=== PATIENT | female | born 1990 | race Caucasian/White ===

== ENCOUNTER 2017-04-12 12:33 | Outpatient (CLI) | END 2017-04-12 15:05 | disposition home or self-care (01) ==

== ENCOUNTER 2017-04-14 08:36 | Inpatient (IN) | payer MEDICAID ==
[~2017-04-14] VITALS: Ht 160 cm; Wt 63.0 kg
--- NOTE | 2017-04-14 08:54 | TRIAGE ---
OB Triage Datetime Report Generated by CPN: 04/14/2017 08:54 Datetime: 04/14/2017 08:51 Time of Arrival: 04/14/2017 08:40 EGA: 40.3 Arrived By: Ambulatory Arrived From: Home Chief Complaint: UCS SINCE 0200 Movement: Present Contractions: Regular Time Contractions Began: 04/14/2017 02:00 Contractions: Q 15 AT HOME Rupture of Membranes: Denies Vaginal Bleeding: None Vaginal Discharge: Denies Recent Sexual Intercouse: Denies Abdominal Trauma: Not Applicable Patient Complaints: Contractions Time Provider Notified: 04/14/2017 08:51 Provider Notified: DR JOSE Initial Plan: EFM,CALL DR NICOLASSVE Datetime: 04/14/2017 08:50 Maternal Assessment Level of Consciousness: Fully Conscious DTR's/Clonus: DTRs 2+; No Clonus Headache: Denies Blurred Vision: No Respiratory Effort: Unlabored; Regular Rhythm; Equal Expansion Breath Sounds, Left: Clear and Equal Breath Sounds, Right: Clear and Equal Nausea/Vomiting: Denies RUQ Epigastric Pain: Denies Facial Edema: None Temperature Route: Axillary Fall Risk Assessment History of Falling: (0) No Secondary Diagnosis: (0) No Ambulatory Aid: (0) Bedrest/Nurse Assist IV Therapy: (0) No Gait: (0) Normal/Bedrest/Immobile Mental Status: (0) Oriented to Own Ability Fall Score: 0 Fall Risk Score Definition: No Risk: No action required Datetime: 04/12/2017 13:03 EGA: 40.1 Datetime: 04/12/2017 12:59 Fall Score: 0 Fall Risk Score Definition: No Risk: No action required
[2017-04-14 08:55] VITALS: Ht 160 cm; Wt 63.0 kg
[2017-04-14 08:57] VITALS: BP 108/68; PULSE 82; RESP 18
[2017-04-14] MEDS ORDERED: LACTATED RINGER'S 1,000 ML IV SCH (08:59)
[2017-04-14] MEDS ORDERED: PREN1TAB79 PO (08:59)
[2017-04-14] MEDS ORDERED: LIDOCAINE 1% (MPF) 30 ML INJ INJ PRN (09:00)
[2017-04-14] MEDS ORDERED: BUTORPHANOL 2 MG INJ IV PRN (09:00)
[2017-04-14] MEDS ORDERED: OXYTOCIN 30 UNITS/LR 500 ML IV SCH ×2 (09:00)
[2017-04-14] MEDS ORDERED: MISOPROSTOL 200 MCG TAB PR PRN (09:00)
[2017-04-14] MEDS ORDERED: IBUPROFEN 600 MG TAB PO PRN (09:00)
[2017-04-14] MEDS ORDERED: METHYLERGONOVINE 0.2 MG INJ IM PRN (09:00)
[2017-04-14] MEDS ORDERED: CARBOPROST 250 MCG INJ IM PRN (09:00)
[2017-04-14] MEDS ORDERED: OXYTOCIN 30 UNITS/LR 500 ML IV PRN (09:00)
[2017-04-14] MEDS ORDERED: LACTATED RINGER'S 1,000 ML IV PRN (09:30)
[2017-04-14 09:34] LABS: BASOPHILS % 0.4 % (0.0-2.0); EOSINOPHILS # 0.1 10^3/ul (0.0-0.5); EOSINOPHILS % 0.9 % (0.0-7.0); HEMATOCRIT 29.7 % (37.0-47.0); HEMOGLOBIN 9.7 g/dl (12.0-16.0); LYMPHOCYTES # 1.2 10^3/ul (0.8-2.9); LYMPHOCYTES % 17.3 % (15.0-51.0); MEAN CORPUSCULAR HEMOGLOBIN 28.4 pg (29.0-33.0); MEAN CORPUSCULAR HGB CONC 32.7 g/dl (32.0-37.0); MEAN CORPUSCULAR VOLUME 86.8 fl (82.0-101.0); MEAN PLATELET VOLUME 12.3 fl (7.4-10.4); MONOCYTE # 0.3 10^3/ul (0.3-0.9); MONOCYTES % 4.8 % (0.0-11.0); NEUTROPHIL # 5.3 10^3/ul (1.6-7.5); PLATELET COUNT 150 10^3/UL (140-415); RED BLOOD COUNT 3.42 10^6/ul (4.20-5.40); RED CELL DISTRIBUTION WIDTH 14.6 % (11.5-14.5); WHITE BLOOD COUNT 6.9 10^3/ul (4.8-10.8)
[2017-04-14 09:55] LABS: INR 1.01; PROTIME 13.3 Sec (12.2-14.2)
[2017-04-14 09:56] LABS: PARTIAL THROMBOPLASTIN TIME 28.5 Sec (25.0-35.0)
[2017-04-14] MEDS: OXYTOCIN 30 UNITS/LR 500 ML IV SCH ×4 (13:16→21:51)
--- NOTE | 2017-04-14 13:24 | LDN ---
Date/Time of Note Date/Time of Note DATE: 04/14/17 TIME: 13:20 Delivery Summary Normal spontaneous vaginal delivery of a baby girl from OA position shoulders delivered without any difficulty rest of the baby's body followed cord clamped after stopped pulsation placenta spontaneous expulsion inspected complete blood loss 300 cc patient sustained a small first-degree perineal laceration repaired with 3 0 4 chromic catgut Weeks of Gestation 40 weeks and 3 days Placenta Delivered: Spontaneously Meconium: none Episiotomy: No Laceration repair: First-degree perineal laceration repaired with 3-0 chromic catgut Anesthesia type: Local Sponge & Needle done & correct: Yes All needle counts correct: Yes Any foreign bodies felt in the: No Problems: Delivery Information Sex Infant Sex: female Apgars 1 Minute: 8 5 Minute: 9 Suctioning Nose & mouth suctioned at rai: Yes Delee suction performed: No Umbilical Cord Umbilical cord with: 3 Vessels Cord presentations: no nuchal cord Cord Blood was obtained: No KISHA NICOLAS MD Apr 14, 2017 13:24
--- NOTE | 2017-04-14 13:30 | HP ---
Date/Time of Note Date/Time of Note DATE: 04/14/17 TIME: 13:24 OB - History Hx of Present Free Text/Dictation 26 years old female SAB 1 EDC April 11, 2017 admitted at 40 weeks and 3 days in labor pelvic examination on admission cervix 5 cm dilated vertex at -1 station 100% cervical effacement intact membrane with bulging bag Chief Complaint: Labor contraction Estimated Due Date: Apr 11, 2017 : 4 Para: 2 Spontaneous : 1 Care: Good Care Ultrasounds: Normal mid trimester US Obstetrical Complications: None Medical Complications: None Past Family/Social History * Past Medical, Surgical, Family and Obstetric Histories reviewed from chart. Rubella: immune RPR/VDRL: Negative GBS Status: Negative HBsAG: Negative OB Admission Exam Vital Signs Vital Signs Vital Signs Date Time Temp Pulse Resp B/P Pulse Ox O2 Delivery O2 Flow Rate FiO2 04/14/17 08:57 98.0 82 18 108/68 Room Air Physical Exam HEENT: WNL Heart: Rhythm Normal Lungs: Clear, Equal Abdomen: WNL Extremities: Normal Reflexes: Normal Cervical Dilatation: 5cm Effacement: 100% Station: -1 Membranes: Intact Heart Rate: 130's Decelerations: No Decelerations Varibility: Moderate Intensity: Firm Last 72 hours Lab Results CBC & BMP 04/14/17 09:10 OB Assessment/Plan Reason for admission: active labor, other Other plan: 26 years old female SAB 1 EDC April 11 admitted to [facility] at 40 weeks and 3 days in active labor pelvic examination on admission cervix 5-6 cm dilated vertex at -2 station patient transferred from triage unit to L&D anticipating vaginal delivery patient had requested tubal ligation due to no epidural anesthesia which she has refused recommended tubal ligation 6-8 weeks .. KISHA NICOLAS MD Apr 14, 2017 13:30
[2017-04-14 15:56] VITALS: BP 106/69; PULSE 64; RESP 14
[2017-04-14 16:30] VITALS: BP 115/70; PULSE 72; RESP 14
[2017-04-14 16:33] VITALS: BP 114/71; PULSE 60
[2017-04-14] MEDS ORDERED: ONDANSETRON 4 MG INJ IV PRN (18:00)
[2017-04-14] MEDS ORDERED: ACETAMINOPHEN 325 MG TAB PO PRN (18:00)
[2017-04-14] MEDS ORDERED: OXYCODONE/ASPIRIN (4.88/325) TAB PO PRN ×2 (18:00)
[2017-04-14] MEDS ORDERED: DIBUCAINE 1% 30 GM OINT PR PRN (18:00)
[2017-04-14] MEDS ORDERED: HYDROCODONE/APAP (5/325) TAB PO PRN ×2 (18:00)
[2017-04-14] MEDS: BENZOCAINE 20% 56 ML SPRAY TOP PRN (18:34)
[2017-04-14] MEDS: WITCH HAZEL/GLYCERIN PAD PR PRN (18:34)
[2017-04-14] MEDS: LANOLIN 7 GM TUBE TOP PRN (18:35)
[2017-04-14 19:30] VITALS: BP 104/61; PULSE 72; RESP 16
[2017-04-14] MEDS: SENNA/DOCUSATE NA (8.6MG/50MG) TAB PO SCH (21:22)
[2017-04-15] VITALS: BP 99/52; PULSE 72; RESP 18
[2017-04-15] MEDS: IBUPROFEN 600 MG TAB PO SCH ×5 (00:23→23:54)
[2017-04-15 04:20] VITALS: BP 96/50; PULSE 70; RESP 16
[2017-04-15 09:02] VITALS: BP 94/51; PULSE 68; RESP 14
[2017-04-15] MEDS: SENNA/DOCUSATE NA (8.6MG/50MG) TAB PO SCH ×2 (09:52→20:58)
[2017-04-15 11:17] LABS: BASOPHILS % 0.3 % (0.0-2.0); EOSINOPHILS % 0.3 % (0.0-7.0); HEMATOCRIT 29.7 % (37.0-47.0); HEMOGLOBIN 9.5 g/dl (12.0-16.0); LYMPHOCYTES # 1.6 10^3/ul (0.8-2.9); LYMPHOCYTES % 17.1 % (15.0-51.0); MEAN CORPUSCULAR HEMOGLOBIN 27.9 pg (29.0-33.0); MEAN CORPUSCULAR VOLUME 87.1 fl (82.0-101.0); MEAN PLATELET VOLUME 12.6 fl (7.4-10.4); MONOCYTE # 0.5 10^3/ul (0.3-0.9); MONOCYTES % 4.9 % (0.0-11.0); NEUTROPHIL # 7.1 10^3/ul (1.6-7.5); NEUTROPHILS % 76.9 % (39.0-77.0); PLATELET COUNT 153 10^3/UL (140-415); RED BLOOD COUNT 3.41 10^6/ul (4.20-5.40); RED CELL DISTRIBUTION WIDTH 14.6 % (11.5-14.5); WHITE BLOOD COUNT 9.2 10^3/ul (4.8-10.8)
--- NOTE | 2017-04-15 15:47 | QN ---
Documentation Comment day 1 Afebrile, vital signs are stable, abdomen soft, uterus firm, lochia normal, extremity normal. KISHA NICOLAS MD Apr 15, 2017 15:47
[2017-04-15 16:55] VITALS: BP 98/60; PULSE 80; RESP 16
[2017-04-15 19:20] VITALS: BP 100/59; PULSE 72; RESP 20
[2017-04-16 03:45] VITALS: BP 94/55; PULSE 66; RESP 17
[2017-04-16] MEDS: IBUPROFEN 600 MG TAB PO SCH ×2 (05:32→12:13)
[2017-04-16 07:30] VITALS: BP 102/54; PULSE 65; RESP 19
[2017-04-16] MEDS: LANOLIN 7 GM TUBE TOP PRN (08:32)
[2017-04-16] MEDS: SENNA/DOCUSATE NA (8.6MG/50MG) TAB PO SCH (08:32)
[2017-04-16] MEDS ORDERED: MEASLES,MUMPS,RUBELLA VACCINE INJ SC* ONE (09:00)
--- NOTE | 2017-04-16 10:01 | PD.PPDC ---
[employer] Discharge Instruction Condition Patient Condition: Good Diet Diet: Resume Regular Diet Activity/Restrictions Activity: Normal Activity May Shower Restrictions: No Exercising No Lifting No Driving No Sexual Activity Nothing in the Vagina No [place] No Tampons, douche Follow-up Follow-up with Physician: 2, Week/Weeks Provider Information: instructions given recommended to make appointment to be seen at the clinic in 2 weeks Return to clinic for DRUG AND ALCOHOL TREATMENT SPECIALIST Instructions: Fever greater than 101 Chills Worsening abdominal pain Excessive Vaginal Bleeding More than 2 pads per hour Unable to tolerate diet OB Instructions: Breast Tenderness Depression Blurried Vision Headache Surgical Instructions: Incisional Drainage Incisional Redness KISHA NICOLAS MD Apr 16, 2017 10:00
--- NOTE | 2017-04-16 10:03 | DS ---
Date/Time of Note Date/Time of Note DATE: 04/16/17 TIME: 10:01 Discharge Summary Admission/Discharge Info Admit Date/Time Apr 14, 2017 at 08:45 Discharge Date/Time April 08, 2017 at 9:40 AM Discharge Diagnosis Post normal vaginal delivery day 2 Patient Condition: Good Procedures Normal vaginal delivery Hx of Present Illness Term Hospital Course Satisfactory recovery uneventful Home Meds Reported Medications Vit W-Ca,Fe,FA(<1 mg) ( Vitamins) 1 Each Tablet, 1 EACH PO, TAB 04/14/17 Follow-up Plan instruction given recommended to make appointment to be seen at the clinic in 2 weeks Primary Care Provider [facility] Time spent on discharge: < 30 minutes Pending Labs Laboratory Tests Test 04/15/17 10:50 White Blood Count 9.210^3/ul (4.8-10.8) Red Blood Count 3.4110^6/ul (4.20-5.40) Hemoglobin 9.5g/dl (12.0-16.0) Hematocrit 29.7% (37.0-47.0) Mean Corpuscular Volume 87.1fl (82.0-101.0) Mean Corpuscular Hemoglobin 27.9pg (29.0-33.0) Mean Corpuscular Hemoglobin Concent 32.0g/dl (32.0-37.0) Red Cell Distribution Width 14.6% (11.5-14.5) Platelet Count 78534^3/UL (140-415) Mean Platelet Volume 12.6fl (7.4-10.4) Neutrophils % 76.9% (39.0-77.0) Lymphocytes % 17.1% (15.0-51.0) Monocytes % 4.9% (0.0-11.0) Eosinophils % 0.3% (0.0-7.0) Basophils % 0.3% (0.0-2.0) Nucleated Red Blood Cells % 0.0/100WBC (0.0-0.0) Neutrophils # 7.110^3/ul (1.6-7.5) Lymphocytes # 1.610^3/ul (0.8-2.9) Monocytes # 0.510^3/ul (0.3-0.9) Eosinophils # 0.010^3/ul (0.0-0.5) Basophils # 0.010^3/ul (0.0-0.1) Nucleated Red Blood Cells # 0.010^3/ul (0.0-0.0) KISHA NICOLAS MD Apr 16, 2017 10:02
[2017-04-16] MEDS: WITCH HAZEL/GLYCERIN PAD PR PRN (12:13)
[2017-04-16] MEDS: BENZOCAINE 20% 56 ML SPRAY TOP PRN (12:13)
== END 2017-04-16 15:04 | disposition home or self-care (01) | DRG 775 ==
LOC: OBT 08:36 → L-D 08:37 → OBT 08:45 → L-D 08:45 → PP1 15:41
PROVIDERS: ADMIT Obstetrics & Gynecology; ATTEND Obstetrics & Gynecology
PROC: 10E0XZZ Delivery of Products of Conception, External Approach (ICD-10-PCS; principal; 2017-04-14)
PROC: 0HQ9XZZ Repair Perineum Skin, External Approach (ICD-10-PCS; 2017-04-14)
DX: O48.0 Post-term pregnancy (principal); O70.0 First degree perineal laceration during delivery; Z37.0 Single live birth; Z3A.40 40 weeks gestation of pregnancy
CPT/HCPCS: 85025; 85610; 85730; 86592; 86900; 86901; 87340; G0463; J2590; J7120